=== PATIENT | female | born 1940 | race Caucasian/White ===

== ENCOUNTER 2021-03-31 09:02 | Inpatient (IN) ==
[2021-03-31 10:15] LABS: Basophils % 0.2 % (0.0-0.8); Eosinophils % 0.1 % (0.00-10.9); Hematocrit 34.1 VOL% (35.7-47.0); Hemoglobin 10.7 GM/DL (12.0-16.0); Immature Granulocytes % 0.7 %; Immature Granulocytes Absolute 0.11 #; Lymphocytes % 6.3 % (21.3-54.2); Mean Corpuscular HGB Conc 31.4 GM/DL (32-36); Mean Corpuscular Volume 93.7 FL (87-102); Mean Platelet Volume 10.2 FL (9.6-12.0); Monocytes % 4.1 % (1.7-12.7); Neutrophils % 88.6 % (38.7-73.9); Platelet Count 223 T/CUMM (130-400); Red Blood Count 3.64 MC/CUMM (3.8-5.5); Red Cell Distribution Width 13.3 % (9.3-17.3); White Blood Count 16.2 T/CUMM (4-12)
[2021-03-31] MEDS ORDERED: HYDROmorphone 2 MG/1 ML VIAL ONE (10:18)
[2021-03-31 10:25] LABS: PT Patient Result 11.3 SECS (10.5-12.0); Partial Thromboplastin Time 22.1 SECS (23.9-33.8)
[2021-03-31 10:35] LABS: Albumin 3.8 G/DL (3.4-5.0); Bilirubin,Total 0.7 MG/DL (0.20-1.00); Calcium 9.4 MG/DL (8.5-10.1); Osmolality,Calculated 280.4 MOS/KG (273-304); Potassium 3.5 MMOL/L (3.5-5.1); Total Protein 6.9 G/DL (6.4-8.2)
[2021-03-31] MEDS ORDERED: HYDROmorphone 2 MG/1 ML VIAL IV STA (10:52)
[2021-03-31 10:59] LABS: Bacteria,Urine Occasional /HPF (Few); Bilirubin,Urine Negative (Negative); Blood, Urine Negative (Negative); Glucose,Urine (UA) Negative (Negative); Ketones,Urine Negative (Negative); Nitrite,Urine Negative (Negative); Protein,Urine Negative; RBC,Urine 1 /HPF (0-4); Squamous Epithelial Cell,Urine Occasional /HPF (0-10); Urine Appearance CLEAR (Clear); Urine Color Straw (Yellow); Urine Specific Gravity 1.005 (1.001-1.035); Urine Urobilinogen < 2.0 EU/DL (0.2-1.0)
[2021-03-31] MEDS ORDERED: LIDOCAINE 2% 5 ML VIAL ONE (11:07)
[2021-03-31] MEDS ORDERED: ONDANSETRON 4 MG/2 ML VIAL ONE ×2 (11:07→12:15)
[2021-03-31] MEDS ORDERED: propofoL 200 MG/20 ML VIAL IV ONE (11:07)
[2021-03-31] MEDS ORDERED: ROCURONIUM 50 MG/5 ML VIAL IV ONE (11:07)
[2021-03-31] MEDS ORDERED: fentaNYL 100 MCG/2 ML VIAL ONE (11:07)
[2021-03-31] MEDS ORDERED: PHENYLEPHRINE DRIP 0 MG/0 ML PREMIX IV ONE (11:28)
[2021-03-31] MEDS ORDERED: LACTATED RINGERS 1,000 ML IV SCH (12:00)
[2021-03-31] MEDS ORDERED: ePHEDrine 50 MG/ML VIAL ONE (12:14)
[2021-03-31] MEDS ORDERED: ceFAZolin 1,000 MG VIAL ONE (12:15)
[2021-03-31] MEDS ORDERED: DEXAMETHASONE 4 MG/1 ML VIAL ONE ×2 (12:15→13:12)
[2021-03-31] MEDS ORDERED: ACETAMINOPHEN INJ 1,000 MG/100 ML VIAL IV ONE (12:20)
[2021-03-31] MEDS ORDERED: GLYCOPYRROLATE 0.4 MG/2 ML VIAL ONE (12:39)
[2021-03-31] MEDS ORDERED: NEOSTIGMINE 10 MG/10 ML VIAL ONE (12:39)
[2021-03-31] MEDS ORDERED: BACITRACIN OINT 0.9 GM PACK TOP ONE (12:40)
[2021-03-31] MEDS ORDERED: SEVOFLURANE 1 UNIT/15 MINUTE INH ONE (12:45)
[2021-03-31] MEDS ORDERED: LACTATED RINGERS 1,000 ML IV ONE (12:57)
[2021-03-31] MEDS ORDERED: ROPIVACAINE 0.5% 30 ML VIAL ONE (13:12)
[2021-03-31] MEDS ORDERED: LIDOCAINE 1% 5 ML VIAL ONE (13:12)
[2021-03-31] MEDS ORDERED: MAGNESIUM HYDROXIDE SUSP 30 ML UDCUP PO PRN (14:13)
[2021-03-31] MEDS ORDERED: ONDANSETRON 4 MG/2 ML VIAL IV PRN (14:13)
[2021-03-31] MEDS ORDERED: ACETAMINOPHEN 325 MG TABLET PO PRN (14:13)
[2021-03-31] MEDS ORDERED: MORPHINE 2 MG/1 ML SYRINGE IV PRN (14:13)
[2021-03-31] MEDS: LACTATED RINGERS 1,000 ML IV SCH (15:50)
[2021-03-31] MEDS: DOCUSATE SODIUM 100 MG CAPSULE PO SCH (20:53)
[2021-04-01] MEDS: LACTATED RINGERS 1,000 ML IV SCH (01:02)
[2021-04-01 05:44] LABS: Basophils % 0.2 % (0.0-0.8); Hematocrit 29.8 VOL% (35.7-47.0); Immature Granulocytes % 0.5 %; Immature Granulocytes Absolute 0.07 #; Lymphocytes # 0.9 10*3/uL (1.4-4.0); Lymphocytes % 6.8 % (21.3-54.2); Mean Corpuscular HGB Conc 30.2 GM/DL (32-36); Mean Corpuscular Volume 97.1 FL (87-102); Mean Platelet Volume 11.3 FL (9.6-12.0); Monocytes % 6.9 % (1.7-12.7); Neutrophils % 85.6 % (38.7-73.9); Platelet Count 180 T/CUMM (130-400); Red Blood Count 3.07 MC/CUMM (3.8-5.5); Red Cell Distribution Width 13.5 % (9.3-17.3); White Blood Count 12.9 T/CUMM (4-12)
[2021-04-01 06:11] LABS: Calcium 9.2 MG/DL (8.5-10.1); Osmolality,Calculated 273.8 MOS/KG (273-304); Potassium 3.9 MMOL/L (3.5-5.1)
[2021-04-01] MEDS: FONDAPARINUX 2.5 MG/0.5 ML SYRINGE SUBCUT SCH (06:33)
[2021-04-01] MEDS ORDERED: ZALEPLON 5 MG CAPSULE PO PRN (06:39)
[2021-04-01] MEDS: DOCUSATE SODIUM 100 MG CAPSULE PO SCH ×2 (08:15→20:24)
[2021-04-01] MEDS: PANTOPRAZOLE 40 MG TABLET PO SCH (08:15)
[2021-04-02 05:13] LABS: Basophils % 0.3 % (0.0-0.8); Eosinophils % 0.1 % (0.00-10.9); Hematocrit 27.5 VOL% (35.7-47.0); Hemoglobin 8.4 GM/DL (12.0-16.0); Immature Granulocytes % 0.5 %; Immature Granulocytes Absolute 0.05 #; Lymphocytes # 1.5 10*3/uL (1.4-4.0); Lymphocytes % 13.2 % (21.3-54.2); Mean Corpuscular HGB Conc 30.5 GM/DL (32-36); Mean Corpuscular Volume 97.5 FL (87-102); Mean Platelet Volume 11.2 FL (9.6-12.0); Monocytes % 8.4 % (1.7-12.7); Neutrophils % 77.5 % (38.7-73.9); Platelet Count 179 T/CUMM (130-400); Red Blood Count 2.82 MC/CUMM (3.8-5.5)
[2021-04-02] MEDS: FONDAPARINUX 2.5 MG/0.5 ML SYRINGE SUBCUT SCH (05:34)
[2021-04-02] MEDS: DOCUSATE SODIUM 100 MG CAPSULE PO SCH (08:29)
[2021-04-02] MEDS: PANTOPRAZOLE 40 MG TABLET PO SCH (08:29)
[2021-04-02 11:17] VITALS: BP 149/56
== END 2021-04-02 14:48 | disposition swing bed (61) | DRG 482 ==
LOC: EDUNIT# → EDBD → N.ED 09:02 → N.EDINP 10:00 → N.3E 11:23
PROVIDERS: ADMIT Family Medicine; ATTEND Family Medicine